=== PATIENT | female | born 1975 ===

== ENCOUNTER 2022-12-04 19:47 | Emergency (ER) | payer OTHER ==
--- OUTSIDE RECORDS SUMMARY | 2022-12-04 19:50 | XMS REPORT | Continuity of Care Document ---
:1975 Author Organization [facility] t Address [address] [place] [address] [place] [id number] Care Team Providers Name Role Phone CARIDAD MICHAEL Primary Care Physician Unavailable DR CARIDAD MICHAEL Attending Clinician Unavailable [phone] Attending Clinician Unavailable [id number] Attending Clinician Unavailable WILL Attending Clinician Unavailable DR LANA WILEY Attending Clinician Unavailable [phone] Attending Clinician Unavailable DR CARIDAD MICHAEL Admitting Clinician Unavailable WILL Admitting Clinician Unavailable DR LANA WILEY Admitting Clinician Unavailable Payers Payer Name Policy Type Policy Number Effective Date Expiration Date S garrett MEDICARE - OP [id number] MEDICARE - OP [id number] MEDICARE - OP [id number] MEDICARE - OP [id number] Problems This patient has no known problems. Allergies, Adverse Reactions, Alerts Allergy Allergy Status Severity Reaction(s) Onset Inactive Treating Comm ents Source Name Type Date Date Clinician PENICILL DA Active MODERATE HIVES/ RASH E l IN [facility] Medications This patient has no known medications. Procedures This patient has no known procedures. Encounters Start End Encounter Admission Attending Care Care Encounter Source Date/Time Date/Time Type Type Clinicians Facility Department ID 2022-11-15 Outpatient ELC[facility]PO E[facility] [id number] El 09:07:59 [id number] [facility] 2022-11-12 Outpatient E[facility] E[facility] [id number] El 10:51:40 [id number] [facility] 2022-11-07 Outpatient ELCAMPO E[facility] [id number] El 13:04:13 [id number] [facility] 2021-12-01 Outpatient ELC[facility]PO E[facility] [id number] El 09:20:05 [id number] [facility] 2021-10-19 Outpatient ELC[facility]PO E[facility] [id number] El 11:19:41 [id number] [facility] 2022-11-15 2022-11-15 Outpatient CARIDAD BERNAL [facility] [id number] El 09:09:00 10:47:00 [id number] [place] [id number] [facility] 2022-11-15 2022-11-15 Outpatient [facility] [id number] El 09:56:00 09:56:00 [id number] [place] [facility] [id number] [facility] 2022-03-07 2022-03-07 Outpatient HARISH [facility] [id number] [place] 00:00:00 00:00:00 SSA 0727 da [facility] 2021-12-01 2021-12-01 Outpatient Rachel LANA WILEY [facility] EX [id number] El 09:06:00 11:36:00 [id number] [facility] Results This patient has no known results.
[2022-12-04] MEDS ORDERED: MORPHINE 4 MG/ML SYR ONE (21:07)
[2022-12-04] MEDS ORDERED: ONDANSETRON 4 MG/2 ML VIAL ONE (21:07)
[2022-12-04] MEDS ORDERED: NA CHLORIDE 0.9% 500 ML ONE (21:08)
[2022-12-04 21:27] LABS: Absolute Lymphocytes (CBC) 2.9 K/uL (0.7-4.9); Hematocrit 41.1 % (36.0-45.0); Lymphocytes % 27.1 % (15.3-44.8); MCV 87.2 fL (80-100); MPV 7.3 fL (7.6-11.3); RBC Red Blood Cell Count 4.72 M/uL (3.86-4.86)
[2022-12-04 21:41] LABS: Albumin 3.6 g/dL (3.4-5.0); Bilirubin Total 0.2 mg/dL (0.2-1.0); Protein, Total 7.5 g/dL (6.4-8.2)
--- NOTE | 2022-12-04 22:08 | RAD REPORT ---
EXAM DESCRIPTION: CT - Soft Tissue Neck W/Contr CLINICAL HISTORY: neck swelling;Facial pain COMPARISON: <Comparisons> TECHNIQUE All CT scans are performed using dose optimization technique as appropriate and may includ e automated exposure control or mA/KV adjustment according to patient size. FINDINGS: There is moderate soft tissue thickening and inflammation along the buccal cortex of the r ight anterior mandible. Several eroded teeth with periapical fluid present in this region adjacent to this. A somewhat poorly demarcated 12 mm subperiosteal abscess is seen in this location. A few mildly enlarged submandibular lymph nodes are present on the right likely related to reactive a denopathy. Normal size thyroid gland. IMPRESSION: Soft tissue edema, inflammation and 8 mm subperiosteal abscess along the anterior right focal cortex of the mandible. This is presumably odontogenic in origin.
--- NOTE | 2022-12-04 22:17 | RAD REPORT ---
EXAM DESCRIPTION: CT - Chest Abdomen Pelvis W Cont - 12/04/2022 9:58 pm CLINICAL HISTORY: Chest and abdomen pain. EPIGASTRIC PAIN COMPARISON: No comparisons TECHNIQUE: Approximately 100 mL nonionic IV contrast was administered to the patient. All CT scans are performed using dose optimization technique as appropriate and may include automated exposure control or mA/KV adjustment according to patient size. FINDINGS: The lungs are clear.Cholecystectomy clips.No pleural or pericardial effusion.No intrathora cic adenopathy. The liver, spleen, pancreas, adrenal glands and kidneys are within normal limits. Cholecystectomy. No bowel obstruction, free air, free fluid or abscess. Normal appendix. No pathologic lymphadenopath y in the abdomen or pelvis. No worrisome osseous finding. IMPRESSION: No acute process is identified.
[2022-12-04] MEDS ORDERED: PROMETHAZINE INJ 25 MG/ML AMP ONE (22:43)
--- NOTE | 2022-12-05 00:40 | EDPHYS ---
Physician Documentation [facility] Name: Lisa Frye Age: 47 yrs Sex: Female : 1975 Arrival Date: 12/04/2022 Time: 19:47 Bed 7 Private MD: ED Physician Juancarlos Avila HPI: 12/04 22:08 This 47 yrs old Female presents to ER via Ambulatory with complaints of Nausea, Neck kdr Pain, <24hrs Old. 22:08 Patient has had longstanding issues with her dental health. She has very poor dentition kdr throughout her entire mouth. On Saturday she saw a dentist who upon initial examination felt she needed further evaluation and probably antibiotics. She was taken to a local stand-alone ER where and she was given some IV antibiotics and p.o. antibiotics on discharge. Those antibiotics included Keflex and Cleocin. Since then the patient has felt increasingly ill today. She has had hot flashes and some nausea but no vomiting. She has had chest and abdominal pain as well. She feels she is having a slight amount of difficulty swallowing as well.. Onset: The symptoms/episode began/occurred gradually, at an unknown time. and became worse yesterday. The patient has experienced similar episodes in the past, chronically. The patient has been recently seen by a physician: The patient has been recently seen at an urgent care, yesterday, Patient has had 4 doses of oral antibiotics since discharge from the urgent care. 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 Flu vaccine is not up to date. - Social history:: Smoking status: Patient reports the use of cigarette tobacco products, smokes one pack cigarettes per day. Patient/guardian denies using alcohol, street drugs. ROS: 22:08 Constitutional: Negative for fever, chills, and weight loss, patient does report kdr subjective fevers but no measured fever today Eyes: Negative for injury, pain, redness, and discharge, Neck: Negative for injury, pain, and swelling, Cardiovascular: Negative for chest pain, palpitations, and edema, Respiratory: Negative for shortness of breath, cough, wheezing, and pleuritic chest pain, Abdomen/GI: Negative for abdominal pain, nausea, vomiting, diarrhea, and constipation, Back: Negative for injury and pain, : Negative for injury, bleeding, discharge, and swelling, MS/Extremity: Negative for injury and deformity, Skin: Negative for injury, rash, and discoloration, Neuro: Negative for headache, weakness, numbness, tingling, and seizure activity. Psych: Negative for depression, anxiety, suicide ideation, homicidal ideation, and hallucinations, Allergy/Immunology: Negative for hives, rash, and allergies, Endocrine: Negative for neck swelling, polydipsia, polyuria, polyphagia, and marked weight changes, Hematologic/Lymphatic: Negative for swollen nodes, abnormal bleeding, and unusual bruising. 22:08 ENT: Positive for dental pain, difficulty swallowing, Gum pain Teeth pain Negative for drainage from ear(s), ear pain, foreign body sensation, sinus congestion, sore throat, difficulty handling secretions. Exam: 22:08 Constitutional: This is a well developed, well nourished patient who is awake, alert, kdr and in no acute distress. Head/Face: Normocephalic, atraumatic. Eyes: Pupils equal round and reactive to light, extra-ocular motions intact. Lids and lashes normal. Conjunctiva and sclera are non-icteric and not injected. Cornea within normal limits. Periorbital areas with no swelling, redness, or edema. Neck: Trachea midline, no thyromegaly or masses palpated, and no cervical lymphadenopathy. Supple, full range of motion without nuchal rigidity, or vertebral point tenderness. No Meningismus. Chest/axilla: Normal chest wall appearance and motion. Nontender with no deformity. No lesions are appreciated. Cardiovascular: Regular rate and rhythm with a normal S1 and S2. No gallops, murmurs, or rubs. Normal PMI, no JVD. No pulse deficits. Respiratory: Lungs have equal breath sounds bilaterally, clear to auscultation and percussion. No rales, rhonchi or wheezes noted. No increased work of breathing, no retractions or nasal flaring. Abdomen/GI: Soft, non-tender, with normal bowel sounds. No distension or tympany. No guarding or rebound. No evidence of tenderness throughout. Back: No spinal tenderness. No costovertebral tenderness. Full range of motion. Skin: Warm, dry with normal turgor. Normal color with no rashes, no lesions, and no evidence of cellulitis. MS/ Extremity: Pulses equal, no cyanosis. Neurovascular intact. Full, normal range of motion. Neuro: Awake and alert, GCS 15, oriented to person, place, time, and situation. Cranial nerves II-XII grossly intact. Motor strength 5/5 in all extremities. Sensory grossly intact. Cerebellar exam normal. Normal gait. Psych: Awake, alert, with orientation to person, place and time. Behavior, mood, and affect are within normal limits. Vital Signs: 20:28 BP 131 / 90; Pulse 93; Resp 16 S; Temp 98.3(TE); Pulse Ox 98% on R/A; Weight 73.94 kg lg3 (R); Height 5 ft. 5 in. (R); Pain 7/10; 20:57 BP 127 / 93; Pulse 79; Resp 14; Pulse Ox 96% on R/A; aa9 22:32 BP 125 / 81; Pulse 81; Resp 17 S; Pulse Ox 97% on R/A; aa9 22:39 BP 153 / 93; Pulse 75; Resp 17; Pulse Ox 97% ; aa9 23:58 BP 120 / 78; Pulse 76; Resp 16 S; Pulse Ox 96% on R/A; 3 12/05 00:55 BP 111 / 76; Pulse 72; Resp 17; Temp 98.7(O); Pulse Ox 99% ; aa9 12/04 20:28 Body Mass Index 27.12 (73.94 kg, 165.1 cm) [facility] 12/04 20:28 Pain Scale: Adult [facility] MDM: 12/04 22:08 Data reviewed: vital signs, nurses notes, lab test result(s), radiologic studies. kdr 12/05 00:39 Patient medically screened. kdr 12/04 20:50 Order name: CBC with Diff; Complete Time: 23:22 kdr 12/04 20:50 Order name: CMP; Complete Time: 23:22 kdr 12/04 20:50 Order name: Blood Culture Adult (2) kdr 12/04 20:50 Order name: CT Soft Tissue Neck W/contr; Complete Time: 23:23 kdr 12/04 21:54 Order name: Chest Abdomen Pelvis W Cont; Complete Time: 23:23 EDMS Administered Medications: 12/04 21:16 Drug: morphine IVP or IV 4 mg Route: IVP; Infused Over: 4 mins; Site: right forearm; aa9 22:36 Follow up: Response: No adverse reaction aa9 21:16 Drug: Ondansetron IVP 4 mg Route: IVP; Site: right forearm; aa9 22:36 Follow up: Response: No adverse reaction aa9 21:16 Drug: NS 0.9% IV 500 ml Route: IV; Rate: bolus; Site: right forearm; aa9 22:48 Follow up: Response: No adverse reaction; IV Status: Completed infusion; IV Intake: lg3 500ml 22:48 Drug: Promethazine IVP 25 mg Route: IVP; Site: right wrist; lg3 23:57 Follow up: Response: No adverse reaction; Nausea is decreased lg3 Disposition Summary: 12/05/22 00:39 Discharge Ordered Location: Home kdr Condition: Stable kdr Diagnosis - Dental abscess right mandible kdr Followup: kdr - With: Ginna Aiken MD - When: Today - Reason: If symptoms return, Further diagnostic work-up, Recheck today's complaints, Continuance of care, Re-evaluation by your physician Followup: kdr - With: Elizabeth Melchor MD - When: Today - Reason: If symptoms return, Further diagnostic work-up, Recheck today's complaints, Continuance of care, Re-evaluation by your physician Followup: kdr - With: Kashif Mccain DDS - When: Today - Reason: Further diagnostic work-up, Recheck today's complaints, Continuance of care, Re-evaluation by your physician Discharge Instructions: - Discharge Summary Sheet kdr - Dental Abscess, [id number] kdr Forms: - Medication Reconciliation Form kdr - Thank You Letter kdr - Antibiotic Education kdr - Prescription Opioid Use kdr Prescriptions: - Zofran 4 mg Oral Tablet - take 1 tablet by ORAL route every 4-6 hours As needed; 12 tablet; Refills: 0, kdr Product Selection Permitted - Tramadol 50 mg Oral Tablet - take 1 tablet by ORAL route every 8 hours as needed; 12 tablet; Refills: 0, kdr Product Selection Permitted Signatures: Dispatcher [employer] EDOH Juancarlos Avila MD MD kdr Gibson, Lacie, RN RN lg3 Zeynep Mares RN RN aa9 Corrections: (The following items were deleted from the chart) 20:34 20:30 Home Meds: None; lg3 lg3 20:34 20:30 PMHx: Rheumatic fever; lg3 lg3
--- NOTE | 2022-12-05 00:40 | ER ---
Nurse's Notes [facility] Name: Lisa Frye Age: 47 yrs Sex: Female : 1975 Arrival Date: 12/04/2022 Time: 19:47 Bed 7 Private MD: Diagnosis: Dental abscess right mandible Presentation: 12/04 20:28 Chief complaint: Patient states: i went to the dentist yesterday and they sent me to lg3 the er for an abscess. they gave me antibiotics and sent me home. it has not gotten better and now im throwing up, have a headache and dizzy. Coronavirus screen: Client denies travel out of the [place] in the last 14 days. At this time, the client does not indicate any symptoms associated with coronavirus-19. Ebola Screen: No symptoms or risks identified at this time. Initial Sepsis Screen: Does the patient meet any 2 criteria? No. Patient's initial sepsis screen is negative. Does the patient have a suspected source of infection? No. Patient's initial sepsis screen is negative. Risk Assessment: Do you want to hurt yourself or someone else? Patient reports no desire to harm self or others. Onset of symptoms is unknown. 20:28 Method Of Arrival: Ambulatory lg3 20:28 Acuity: ZORAN 3 lg3 Triage Assessment: 20:30 General: Appears in no apparent distress. uncomfortable, Behavior is calm, cooperative. lg3 Pain: Complains of pain in right ear, chin and right jaw. EENT: Oral mucosa is moist. Poor dentition noted. Neuro: No deficits noted. Velez Agitation-Sedation Scale (RASS): 0 - Alert and Calm Level of Consciousness is awake, alert, obeys commands, Oriented to person, place, time, situation. Cardiovascular: No deficits noted. Denies chest pain, shortness of breath, Capillary refill < 3 seconds Clubbing of nail beds is absent JVD is absent Patient's skin is warm and dry. Respiratory: No deficits noted. Airway is patent Respiratory effort is even, unlabored, Respiratory pattern is regular, symmetrical. GI: No deficits noted. Abdomen is round non-distended, Reports nausea, vomiting. : No deficits noted. No signs and/or symptoms were reported regarding the genitourinary system. Derm: Skin is intact, is healthy with good turgor, Skin is dry, Skin is normal, Skin temperature is warm Reports pain that is 7 out of 10 on a pain scale. Musculoskeletal: Swelling present in chin and right jaw. 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 Flu vaccine is not up to date. - Social history:: Smoking status: Patient reports the use of cigarette tobacco products, smokes one pack cigarettes per day. Patient/guardian denies using alcohol, street drugs. Screenin:34 [facility] ED Fall Risk Assessment (Adult) History of falling in the last 3 months, aa9 including since admission No falls in past 3 months (0 pts) Confusion or Disorientation No (0 pts) Intoxicated or Sedated No (0 pts) Impaired Gait Yes (1 pt) Mobility Assist Device Used No (0 pt) Altered Elimination No (0 pt) Score/Fall Risk Level 0 - 2 = Low Risk Oriented to surroundings, Maintained a safe environment, Educated pt \T\ family on fall prevention, incl call for assistance when getting out of bed. Abuse screen: Denies threats or abuse. Denies injuries from another. Nutritional screening: Has had N/V for 3 or more days. Tuberculosis screening: No symptoms or risk factors identified. Assessment: 21:17 General: Appears uncomfortable, ill, Behavior is cooperative, anxious. Pain: Complains aa9 of pain in chest, head and neck Pain currently is 7 out of 10 on a pain scale. Noted to be moaning, resistant to movement. Neuro: Level of Consciousness is awake, alert, obeys commands, Oriented to person, place, time, situation. Cardiovascular: Rhythm is regular. Respiratory: Airway is patent Respiratory effort is even, unlabored. GI: Reports nausea, vomiting. 22:16 Reassessment: Patient appears in no apparent distress at this time. Patient and/or aa9 family updated on plan of care and expected duration. Pain level reassessed. Patient is alert, oriented x 3, equal unlabored respirations, skin warm/dry/pink. 22:34 Reassessment: Patient appears in no apparent distress at this time. Patient and/or aa9 family updated on plan of care and expected duration. Pain level reassessed. Patient is alert, oriented x 3, equal unlabored respirations, skin warm/dry/pink. Pain: Complains of pain in epigastric area. 22:49 GI: Reports upper abdominal pain, cramping, nausea. lg3 23:58 Reassessment: Patient appears in no apparent distress at this time. No changes from lg3 previously documented assessment. Patient and/or family updated on plan of care and expected duration. Pain level reassessed. Patient is alert, oriented x 3, equal unlabored respirations, skin warm/dry/pink. Patient states feeling better. Patient states symptoms have improved. 12/05 00:55 Reassessment: Patient appears in no apparent distress at this time. Patient and/or aa9 family updated on plan of care and expected duration. Pain level reassessed. Patient is alert, oriented x 3, equal unlabored respirations, skin warm/dry/pink. Vital Signs: 12/04 20:28 BP 131 / 90; Pulse 93; Resp 16 S; Temp 98.3(TE); Pulse Ox 98% on R/A; Weight 73.94 kg lg3 (R); Height 5 ft. 5 in. (R); Pain 7/10; 20:57 BP 127 / 93; Pulse 79; Resp 14; Pulse Ox 96% on R/A; aa9 22:32 BP 125 / 81; Pulse 81; Resp 17 S; Pulse Ox 97% on R/A; aa9 22:39 BP 153 / 93; Pulse 75; Resp 17; Pulse Ox 97% ; aa9 23:58 BP 120 / 78; Pulse 76; Resp 16 S; Pulse Ox 96% on R/A; lg3 12/05 00:55 BP 111 / 76; Pulse 72; Resp 17; Temp 98.7(O); Pulse Ox 99% ; aa9 12/04 20:28 Body Mass Index 27.12 (73.94 kg, 165.1 cm) lg3 12/04 20:28 Pain Scale: Adult lg3 ED Course: 12/04 20:15 Patient arrived in ED. ag3 20:30 Triage completed. lg3 20:30 Arm band placed on right wrist. lg3 20:35 Juancarlos Avila MD is Attending Physician. kdr 20:57 Zeynep Mares, RN is Primary Nurse. aa9 20:59 Radiology exam delayed due to lab results not completed at this time. (BUN/Creatinine) nj IV insertion attempt and/or patient not having appropriate IV at this time. 21:10 Inserted saline lock: 20 gauge in right forearm, using aseptic technique. Blood aa9 collected. 21:16 Blood Culture Adult (2) Sent. aa9 21:16 CMP Sent. aa9 21:16 CBC with Diff Sent. aa9 21:17 Patient has correct armband on for positive identification. Placed in gown. Bed in low aa9 position. Call light in reach. Side rails up X2. Client placed on continuous cardiac and pulse oximetry monitoring. NIBP monitoring applied. 21:59 CT Soft Tissue Neck W/contr In Process Unspecified. EDMS 21:59 Chest Abdomen Pelvis W Cont In Process Unspecified. EDMS 22:29 Blood Culture Adult (2) Sent. aa9 12/05 00:38 Ginna Aiken MD is Referral Physician. kdr 00:38 Elizabeth Melchor MD is Referral Physician. kdr 00:39 Kashif Mccain DDS is Referral Physician. kdr 00:54 No provider procedures requiring assistance completed. IV discontinued, intact, aa9 bleeding controlled, No redness/swelling at site. Pressure dressing applied. Administered Medications: 12/04 21:16 Drug: morphine IVP or IV 4 mg Route: IVP; Infused Over: 4 mins; Site: right forearm; aa9 22:36 Follow up: Response: No adverse reaction aa9 21:16 Drug: Ondansetron IVP 4 mg Route: IVP; Site: right forearm; aa9 22:36 Follow up: Response: No adverse reaction aa9 21:16 Drug: NS 0.9% IV 500 ml Route: IV; Rate: bolus; Site: right forearm; aa9 22:48 Follow up: Response: No adverse reaction; IV Status: Completed infusion; IV Intake: lg3 500ml 22:48 Drug: Promethazine IVP 25 mg Route: IVP; Site: right wrist; lg3 23:57 Follow up: Response: No adverse reaction; Nausea is decreased lg3 Medication: 12/05 00:55 VIS not applicable for this client. aa9 Intake: 12/04 22:48 IV: 500ml; Total: 500ml. lg3 Outcome: 12/05 00:39 Discharge ordered by . kdr 00:55 Discharged to home ambulatory, with family. aa9 00:55 Condition: stable 00:55 Discharge instructions given to patient, Instructed on discharge instructions, follow up and referral plans. medication usage, Demonstrated understanding of instructions, follow-up care, medications, Prescriptions given X 2. 00:55 Patient left the ED. aa9 Signatures: Dispatcher [employer] EDMS Juancarlos Avila MD MD kdr Jordan, Nathan nj Gomez, Alice Ila Bradley RN RN lg3 Zeynep Mares RN RN aa9 Corrections: (The following items were deleted from the chart) 12/04 20:34 20:30 Home Meds: None; lg3 lg3 20:34 20:30 PMHx: Rheumatic fever; lg3 lg3
[2022-12-05 03:08] VITALS: BP 111/76; TEMP 98.7; O2SAT 99
== END 2022-12-05 00:55 | disposition home or self-care (01) ==
LOC: ER 19:47
DX: K04.7 Periapical abscess without sinus (principal); F17.210 Nicotine dependence, cigarettes, uncomplicated; Z88.0 Allergy status to penicillin
CPT/HCPCS: 87040 ×2; 85025; 36415; 80053; 71260; 70491; 74177; Q9967; J2550; J2405; J7040; 99284